=== PATIENT | male | born 1955 | race Hispanic/Latino ===

== ENCOUNTER → 2018-09-20 | Outpatient (CLI) | payer OTHER ==
[~2018-09-20] MED LIST: ASPI-1197 PO; ATOR40TA69 PO; GABA600T10 PO; GLIM4TAB3 PO; LISI-613 PO; METF-446 PO
== END | disposition home or self-care (01) ==
LOC: SHCH 08:52
PROVIDERS: ATTEND Internal Medicine Cardiovascular Disease
DX: I70.212 Atherosclerosis of native arteries of extremities with intermittent claudication, left leg (principal); E11.51 Type 2 diabetes mellitus with diabetic peripheral angiopathy without gangrene; E11.42 Type 2 diabetes mellitus with diabetic polyneuropathy
CPT/HCPCS: 93925; 93970

== ENCOUNTER 2019-10-22 11:56 | Emergency (ER) | payer OTHER | END 2019-10-22 14:46 | disposition home or self-care (01) | LOC: EDH 11:56 | DX: U07.1 COVID-19 (principal); R51 Headache; R05 Cough; R07.89 Other chest pain; I10 Essential (primary) hypertension; E11.9 Type 2 diabetes mellitus without complications; E78.00 Pure hypercholesterolemia, unspecified | CPT/HCPCS: 36415; 71045; 80053; 81001; 82550; 84484; 85025; 87804 ×2; 87880; 93005; 99285; U0003 ==

== ENCOUNTER → 2020-01-08 | Outpatient (CLI) | payer OTHER ==
[~2020-01-08] MED LIST changes: -GLIM4TAB3 PO; +GLIM4TAB36 PO
== END | disposition home or self-care (01) ==
LOC: RAH 13:26
PROVIDERS: ATTEND Family Medicine
DX: M77.31 Calcaneal spur, right foot (principal); M25.471 Effusion, right ankle; M79.89 Other specified soft tissue disorders
CPT/HCPCS: 73610; 73630; 93971

== ENCOUNTER → 2020-10-05 | Outpatient (CLI) | payer OTHER ==
[~2020-10-05] MED LIST changes: -LISI-613 PO; +LISI20TA24 PO; +REGADENOSON 0.4 MG/5 ML PF SYG IVP SCH
== END | disposition home or self-care (01) ==
LOC: RAH 08:35
PROVIDERS: ATTEND Internal Medicine Cardiovascular Disease
DX: R06.09 Other forms of dyspnea (principal); R06.02 Shortness of breath
CPT/HCPCS: 78452; 93017; 96374; A9500 ×2; J2785

== ENCOUNTER → 2021-11-23 | Outpatient (CLI) | payer OTHER ==
[~2021-11-23] MED LIST changes: -REGADENOSON 0.4 MG/5 ML PF SYG IVP SCH
== END | disposition home or self-care (01) ==
LOC: SHCH 13:23
PROVIDERS: ATTEND Internal Medicine Cardiovascular Disease
DX: I87.2 Venous insufficiency (chronic) (peripheral) (principal)
CPT/HCPCS: 93970

== ENCOUNTER → 2021-11-29 | Outpatient (CLI) | payer OTHER | END | disposition home or self-care (01) | LOC: RAH 11:13 | PROVIDERS: ATTEND Internal Medicine | DX: E03.9 Hypothyroidism, unspecified (principal) | CPT/HCPCS: 76536 ==

== ENCOUNTER → 2021-12-08 | Outpatient (CLI) | payer OTHER | END | disposition home or self-care (01) | LOC: RAH 12:59 | PROVIDERS: ATTEND Nurse Practitioner | DX: M25.519 Pain in unspecified shoulder (principal); M54.2 Cervicalgia | CPT/HCPCS: 72040; 73030 ==

== ENCOUNTER → 2022-03-08 | Outpatient (CLI) | payer OTHER ==
[~2022-03-08] MED LIST changes: +IOHEXOL 350 MG/ML 100ML INFUS..BTL IV ONE
== END | disposition home or self-care (01) ==
LOC: RAH 09:22
PROVIDERS: ATTEND Internal Medicine Cardiovascular Disease
DX: I25.10 Atherosclerotic heart disease of native coronary artery without angina pectoris (principal)
CPT/HCPCS: 75574; Q9967

== ENCOUNTER → 2023-03-07 | Outpatient (CLI) | payer OTHER ==
[~2023-03-07] MED LIST changes: -IOHEXOL 350 MG/ML 100ML INFUS..BTL IV ONE
== END | disposition home or self-care (01) ==
LOC: SHCH 12:46
PROVIDERS: ATTEND Internal Medicine Cardiovascular Disease
DX: I70.203 Unspecified atherosclerosis of native arteries of extremities, bilateral legs (principal); M79.604 Pain in right leg; M79.605 Pain in left leg; I25.119 Atherosclerotic heart disease of native coronary artery with unspecified angina pectoris; E11.51 Type 2 diabetes mellitus with diabetic peripheral angiopathy without gangrene; I11.9 Hypertensive heart disease without heart failure; E78.5 Hyperlipidemia, unspecified; R06.02 Shortness of breath; E66.9 Obesity, unspecified; Z68.35 Body mass index [BMI] 35.0-35.9, adult; Z79.82 Long term (current) use of aspirin; Z79.84 Long term (current) use of oral hypoglycemic drugs; Z79.899 Other long term (current) drug therapy
CPT/HCPCS: 93925; 93970

== ENCOUNTER 2023-05-31 08:07 | Observation (INO) | payer OTHER ==
[2023-05-29 11:14] LABS: APPEARANCE,URINE CLEAR (CLEAR); BILIRUBIN,URINE NEGATIVE (NEGATIVE); COLOR,URINE YELLOW (YELLOW); GLUCOSE, URINE (UA) 70 mg/dL (NEGATIVE); KETONES,URINE NEGATIVE (NEGATIVE); LEUKOCYTE ESTERASE ,URINE NEGATIVE Leu/uL (NEGATIVE); NITRATE,URINE NEGATIVE (NEGATIVE); OCCULT BLOOD,URINE NEGATIVE (NEGATIVE); PROTEIN,URINE 600 mg/dL (NEGATIVE); UROBILINOGEN,URINE 0.2 mg/dL (0.2-1.0)
[2023-05-29 11:20] LABS: BASOPHILS # (AUTO) 0.06 K/uL (0.00-0.20); BASOPHILS % (AUTO) 0.9 % (0.0-5.0); EOSINOPHILS # (AUTO) 0.13 K/uL (0.00-0.70); HEMATOCRIT 37.8 % (42-54); IMMATURE GRANULOCYTE ABSOLUTE 0.05 K/uL (0-1); LYMPHOCYTES # (AUTO) 1.9 K/uL (1.0-4.8); LYMPHOCYTES % (AUTO) 29.1 % (21.0-51.0); MEAN CORPUSCULAR HEMOGLOBIN 33.6 pg (27.0-33.0); MEAN CORPUSCULAR HGB CONC 33.3 g/dL (32.0-36.0); MEAN CORPUSCULAR VOLUME 100.8 fL (79-99); MONOCYTES # (AUTO) 0.5 K/uL (0.1-1.0); MONOCYTES % (AUTO) 7.2 % (3.0-13.0); NEUTROPHILS # (AUTO) 3.8 K/uL (1.8-7.7); PLATELET COUNT (AUTO) 321 K/uL (130-400); RED BLOOD CELL COUNT(AUTO) 3.75 MIL/uL (4.50-6.20); RED CELL DISTRIBUTION WIDTH 13.6 % (11.0-15.5); WHITE BLOOD COUNT (AUTO) 6.4 K/uL (4.8-10.8)
[2023-05-29 11:28] LABS: ADD UA MICROSCOPIC YES
[2023-05-29 11:33] LABS: BACTERIA,URINE RARE /HPF (None Seen); MUCUS,URINE RARE LPF (None Seen); OTHER CASTS, URINE 1 /LPF (None Seen); RBC,URINE 0-1 /HPF (0-1); WBC,URINE 0-1 /HPF (0-1)
[2023-05-29 11:47] LABS: CREATININE 2.3 mg/dL (0.5-1.5); POTASSIUM 4.4 mmol/L (3.5-5.1)
[2023-05-29 11:58] LABS: B-TYPE NATRIURETIC PEPTIDE 21 pg/mL (0-100)
[2023-05-29 12:02] VITALS: BP 138/71; PULSE 60; RESP 18
[2023-05-29 12:15] LABS: INR <= 0.93 (0.85-1.15); PROTHROMBIN TIME 10.6 SEC (9.6-11.6)
[2023-05-29 12:16] LABS: PARTIAL THROMBOPLASTIN TIME 28.8 SEC (26.3-35.5)
[~2023-05-31] VITALS: Ht 162.6 cm; Wt 91.5 kg
[2023-05-31] VITALS (23 sets, daily range): BP systolic 128–174; BP diastolic 64–97; PULSE 56–79; RESP 14–20; O2SAT 96–98
[2023-05-31] MEDS: ACETYLCYSTEINE 600 MG CAPSULE PO SCH (08:58)
[2023-05-31] MEDS: 0.9%NACL 1000ML 1,000 ML IV ONE (09:02)
[2023-05-31] MEDS ORDERED: MULT200T12 PO (09:18)
[2023-05-31] MEDS ORDERED: PIOG30TA70 PO (09:18)
[2023-05-31] MEDS ORDERED: NITR0.4T50 SL (09:18)
[2023-05-31] MEDS ORDERED: RANO500T2 PO (09:18)
[2023-05-31] MEDS ORDERED: ATOR-2 PO (09:18)
[2023-05-31] MEDS ORDERED: MAGN250C PO (09:18)
[2023-05-31] MEDS ORDERED: AMLO-257 PO (09:18)
[2023-05-31] MEDS ORDERED: FENO43CA8 PO (09:18)
[2023-05-31] MEDS ORDERED: METO-408 PO (09:18)
[2023-05-31] MEDS ORDERED: ISOS30TA11 PO (09:18)
[2023-05-31] MEDS ORDERED: FAMO20TA8 PO (09:18)
[2023-05-31] MEDS ORDERED: LEVO75CA5 PO (09:18)
[2023-05-31] MEDS ORDERED: ERGO500093 PO (09:18)
[2023-05-31] MEDS ORDERED: CYAN-106 PO (09:18)
[2023-05-31] MEDS ORDERED: INSU100C14 SQ (09:18)
[2023-05-31] MEDS ORDERED: INSU100V37 SQ (09:18)
[2023-05-31] MEDS ORDERED: BIVALIRUDIN 250 MG/VIAL IV ONE (09:43)
[2023-05-31] MEDS ORDERED: MIDAZOLAM HCL 1 MG/ML 2ML VIAL ONE (09:44)
[2023-05-31] MEDS ORDERED: NITROGLYCERIN 50MG VIAL ONE (09:44)
[2023-05-31] MEDS ORDERED: FENTANYL CITRATE PF 50 MCG/1 ML 2ML VIAL ONE (09:44)
[2023-05-31] MEDS ORDERED: HEPARIN 10,000 UNIT/10ML (1,000 UNIT/ML) VIAL ONE (09:44)
[2023-05-31] MEDS ORDERED: IOHEXOL-350 75 ML VIAL IV ONE (09:44)
[2023-05-31] MEDS ORDERED: LIDOCAINE HCL 400MG/20ML VIAL ONE (09:45)
[2023-05-31] MEDS ORDERED: TICAGRELOR 90 MG TABLET ONE (11:22)
[2023-05-31] MEDS ORDERED: ASPIRIN 325MG EC TAB PO ONE (11:22)
[2023-05-31] MEDS ORDERED: GLUCAGON 1MG KIT 1 MG ML IM PRN (12:00)
[2023-05-31] MEDS ORDERED: DEXTROSE 50%-WATER 50 ML DISP.SYRIN IV PRN (12:00)
[2023-05-31] MEDS: 0.9%NACL 1000ML 1,000 ML IV SCH (12:00)
[2023-05-31] MEDS ORDERED: TICA90TA PO (14:20)
[2023-05-31] MEDS: INSULIN HUMULIN R 100 UNIT/ML 3ML SQ SCH (16:30)
[2023-05-31 17:30] LABS: APPEARANCE,URINE CLEAR (CLEAR); BILIRUBIN,URINE NEGATIVE (NEGATIVE); COLOR,URINE LIGHT-YELLOW (YELLOW); GLUCOSE, URINE (UA) 500 mg/dL (NEGATIVE); KETONES,URINE NEGATIVE (NEGATIVE); LEUKOCYTE ESTERASE ,URINE NEGATIVE Leu/uL (NEGATIVE); NITRATE,URINE NEGATIVE (NEGATIVE); OCCULT BLOOD,URINE NEGATIVE (NEGATIVE); PROTEIN,URINE 300 mg/dL (NEGATIVE); UROBILINOGEN,URINE 0.2 mg/dL (0.2-1.0)
[2023-05-31 17:35] LABS: ADD UA MICROSCOPIC YES
[2023-05-31 17:38] LABS: BACTERIA,URINE RARE /HPF (None Seen); RBC,URINE 0-1 /HPF (0-1); WBC,URINE 0-1 /HPF (0-1)
[2023-05-31] MEDS ORDERED: NITROGLYCERIN 0.4 MG SL TAB SL PRN (20:30)
[2023-05-31] MEDS: TICAGRELOR 90 MG TABLET PO SCH (21:17)
[2023-05-31] MEDS: METOPROLOL SUCCINATE 25 MG TAB.SR.24H PO SCH (21:17)
[2023-05-31] MEDS: ATORVASTATIN 40 MG TABLET PO SCH (21:17)
[2023-05-31] MEDS: FAMOTIDINE 20MG TAB PO SCH (21:17)
[2023-05-31] MEDS: RANOLAZINE 500 MG TAB.SR.12H PO SCH (21:17)
[2023-06-01 00:20] VITALS: BP 164/93; PULSE 60
[2023-06-01 00:25] VITALS: BP 128/74; PULSE 66; RESP 18
[2023-06-01 04:25] VITALS: BP 176/88; PULSE 66; RESP 18
[2023-06-01] MEDS: LEVOTHYROXINE 75 MCG TABLET PO SCH (05:33)
[2023-06-01 06:07] LABS: BASOPHILS # (AUTO) 0.03 K/uL (0.00-0.20); BASOPHILS % (AUTO) 0.4 % (0.0-5.0); EOSINOPHILS # (AUTO) 0.14 K/uL (0.00-0.70); EOSINOPHILS % (AUTO) 1.8 % (0.0-8.0); HEMATOCRIT 34.7 % (42-54); IMMATURE GRANULOCYTE ABSOLUTE 0.03 K/uL (0-1); LYMPHOCYTES # (AUTO) 1.7 K/uL (1.0-4.8); LYMPHOCYTES % (AUTO) 21.7 % (21.0-51.0); MEAN CORPUSCULAR HEMOGLOBIN 33.3 pg (27.0-33.0); MEAN CORPUSCULAR HGB CONC 34.3 g/dL (32.0-36.0); MEAN CORPUSCULAR VOLUME 97.2 fL (79-99); MONOCYTES # (AUTO) 0.6 K/uL (0.1-1.0); MONOCYTES % (AUTO) 8.3 % (3.0-13.0); NEUTROPHILS # (AUTO) 5.1 K/uL (1.8-7.7); NEUTROPHILS % (AUTO) 67.4 % (40.0-77.0); PLATELET COUNT (AUTO) 329 K/uL (130-400); RED BLOOD CELL COUNT(AUTO) 3.57 MIL/uL (4.50-6.20); RED CELL DISTRIBUTION WIDTH 13.7 % (11.0-15.5); WHITE BLOOD COUNT (AUTO) 7.6 K/uL (4.8-10.8)
[2023-06-01 06:25] LABS: ALBUMIN 2.7 g/dL (3.5-5.0); BILIRUBIN,TOTAL 0.4 mg/dL (0.2-1.0); CREATININE 2.1 mg/dL (0.5-1.5); MAGNESIUM 1.7 mg/dL (1.80-2.40); PHOSPHORUS 3.4 mg/dL (2.5-4.9); POTASSIUM 3.5 mmol/L (3.5-5.1); TOTAL PROTEIN, SERUM 6.7 g/dL (6.0-8.3); URIC ACID 3.8 mg/dL (2.6-7.2)
[2023-06-01 08:00] VITALS: BP 144/85; PULSE 64; RESP 16
[2023-06-01] MEDS: ISOSORBIDE MONO 30MG SR TAB PO SCH (09:00)
[2023-06-01] MEDS: ASPIRIN 81MG CHEW TAB PO SCH (10:15)
[2023-06-01] MEDS: AMLODIPINE 5 MG TAB PO SCH (10:15)
[2023-06-01] MEDS: CYANOCOBALAMIN (VITAMIN B-12) 1,000 MCG TABLET PO SCH (10:16)
[2023-06-01] MEDS: PIOGLITAZONE 30MG TAB PO SCH (10:16)
[2023-06-01 11:10] VITALS: BP 156/74; PULSE 61; RESP 16
[2023-06-01] MEDS ORDERED: CLOP75TA32 PO (11:14)
[2023-06-01] MEDS ORDERED: MAGNESIUM CITRATE AND OXIDE 250 MG PO SCH (21:00)
== END 2023-06-01 11:50 | disposition home or self-care (01) ==
LOC: DAH 08:07 → DAHIP 08:08 → DAH 08:08 → 4DH 18:35
PROVIDERS: ADMIT Internal Medicine; ATTEND Internal Medicine
DX: I25.110 Atherosclerotic heart disease of native coronary artery with unstable angina pectoris (principal); E11.51 Type 2 diabetes mellitus with diabetic peripheral angiopathy without gangrene; I13.10 Hypertensive heart and chronic kidney disease without heart failure, with stage 1 through stage 4 chronic kidney disease, or unspecified chronic kidney disease; E11.22 Type 2 diabetes mellitus with diabetic chronic kidney disease; N18.4 Chronic kidney disease, stage 4 (severe); D63.1 Anemia in chronic kidney disease; N17.9 Acute kidney failure, unspecified; E11.21 Type 2 diabetes mellitus with diabetic nephropathy; E78.5 Hyperlipidemia, unspecified; E66.9 Obesity, unspecified; E11.65 Type 2 diabetes mellitus with hyperglycemia; I21.4 Non-ST elevation (NSTEMI) myocardial infarction; F17.220 Nicotine dependence, chewing tobacco, uncomplicated; Z68.35 Body mass index [BMI] 35.0-35.9, adult; Z95.5 Presence of coronary angioplasty implant and graft; Z79.899 Other long term (current) drug therapy
CPT/HCPCS: 80048; 83880; 85025 ×2; 85610; 85730; 81001 ×2; 36415 ×2; 71045; 93005; 92972; 93454; 96360; 96361; 82948 ×5; 83735; 84100; 84550; 80053; C1769 ×2; C1887 ×2; C1894 ×2; C1874 ×2; C1760; C1761; G0378 ×20; J3010; J3490 ×2; J7030 ×2; J2250; J1644 ×2; J0583; Q9967; J1815; A4215; A4223 ×3; A4222; A4221; A4663; A4216; A4606; C9600 ×2; 99156; 99157

== ENCOUNTER → 2025-04-02 | Outpatient (CLI) | payer OTHER ==
--- NOTE | 2025-04-04 00:52 | HMCIMG ---
ABDOMINAL ULTRASOUND REPORT Clinical History: Unspecified abdominal pain. COMPARISON: None. TECHNIQUE: Real-time grayscale sonography of the abdomen was performed. Examination is partially limited by increased bowel gas. FINDINGS: Liver: The liver measures 15.6 cm. There is increased hepatic echogenicity compatible with diffuse steatosis. No focal hepatic lesions are identified. Intrahepatic biliary ducts are not dilated. Gallbladder and Biliary System: The gallbladder wall measures 2.5 mm. No gallstones or pericholecystic fluid are seen. The common bile duct measures 6.1 mm, which is at the upper limits of normal for age and post-prandial state. Pancreas: The pancreatic head and body appear within normal limits. The pancreatic tail is obscured by overlying bowel gas and is not well evaluated. Kidneys: The right kidney measures 9.6 5.5 4.8 cm with normal cortical thickness and echogenicity. No hydronephrosis or focal renal lesions are seen. The left kidney measures 8.7 5.3 4.0 cm and similarly demonstrates normal morphology without hydronephrosis or mass. Spleen: The spleen measures 10.7 cm, which is within normal limits. Echotexture is unremarkable. Aorta and Inferior Vena Cava: The abdominal aorta (2.3 cm) and IVC are within normal limits in caliber and contour. IMPRESSION: 1. Increased hepatic echogenicity, most consistent with hepatic steatosis. 2. Common bile duct diameter at the upper limits of normal; correlate clinically for biliary symptoms. 3. Pancreatic tail not well visualized due to overlying bowel gas. 4. Otherwise unremarkable abdominal ultrasound. RECOMMENDATIONS (per ACR Appropriateness Criteria and practice guidelines) If there are persistent symptoms suggestive of biliary obstruction or pancreatobiliary pathology, consider MRCP for further evaluation of the biliary tree and pancreas. If hepatic steatosis is clinically relevant, risk-factor modification and optional elastography may be considered to assess for fibrosis depending on clinical context. /Aniya
== END | disposition home or self-care (01) ==
LOC: RAH 09:22
PROVIDERS: ATTEND Internal Medicine
DX: R10.9 Unspecified abdominal pain (principal)
CPT/HCPCS: 76700